=== PATIENT | female | born 1970 | race Caucasian/White ===

== ENCOUNTER 2016-09-28 14:50 | Emergency (ER) | payer OTHER ==
[~2016-09-28] VITALS: Ht 154.9 cm; Wt 60.0 kg
[~2016-09-28 14:50] MED LIST: DICY20TA10 PO; PRT40 PO; RANI150T3 PO; TRAZ50TA35 PO
[2016-09-28 14:55] VITALS: TEMP 37.1; Ht 154.9 cm; Wt 60.0 kg
[2016-09-28] MEDS ORDERED: ACETAMINOPHEN/HYDROCODONE ELIX 15 ML/CUP UDP PO STA (15:21)
--- NOTE | 2016-09-28 16:08 | DIAGNOSTIC IMAGING REPORT ---
LEFT FOOT MIN 3 VIEWS ROUTINE CLINICAL HISTORY: injury s/p fall COMPARISON: None. DISCUSSION: The bones and joint spaces appear intact. There is no evidence of fracture, dislocation or bony disease. There is no evidence for soft tissue swelling. IMPRESSION: Negative study. Electronically signed by: Mino Alvarez M.D. 09/28/2016 4:06 PM
--- NOTE | 2016-09-28 16:11 | DIAGNOSTIC IMAGING REPORT ---
LEFT ANKLE 3 VIEWS HISTORY: injury s/p fall COMPARISON: None. FINDINGS: There is no fracture or dislocation. Soft tissues are unremarkable. No radiopaque foreign bodies. IMPRESSION: No fractures. Electronically signed by: Aubrey Benton M.D. 09/28/2016 4:09 PM
[2016-09-28] MEDS ORDERED: HYDR1SOL10 PO (16:34)
--- NOTE | 2016-09-28 16:35 | EMERGENCY ROOM VISIT NOTE ---
ED Visit Note First contact with patient: 15:01 Chief Complaint: Foot/Ankle Injury History of Present Illness: This patient is a 46-year-old female who presents to the Emergency Department this afternoon for evaluation of their LEFT Foot/ Ankle Injury. Patient states that they injured the ankle while stepping awkwardly off of a curb. They report moderate pain over the lateral aspect of the ankle and foot after inverting the ankle. Pain is worse with ambulation. They deny any numbness or tingling into the distal extremity including the toes. They deny any pain extending into the affected leg. Patient reports no previous fractures of the affected ankle. Patient rates her current discomfort as a 10/10. Patient has tried nothing for their pain. She did not strike her head. She did not lose consciousness. Medications: Reviewed and discussed with the patient. Allergies: No known allergies. PMH: No pertinent past medical history. SHx: Patient is a 46-year-old female who lives locally. ROS: All pertinent positive and negative review of systems are appropriately documented in the History of Present Illness. Physical Exam: VITAL SIGNS - Vital signs and nursing notes were reviewed. GENERAL - 46-year-old female appearing her stated age and in noticeable discomfort throughout the exam. MUSCULOSKELETAL - LEFT ankle and proximal foot with moderate edema and developing ecchymosis. No erythema noted. Moderate tenderness to palpation appreciated over the affected area. No tenderness extending into the foot or up the leg. +2/5 strength appreciated LEFT versus right secondary to patient discomfort. Pt with decreased AROM at affected joint secondary to discomfort. NEUROLOGIC/VASCULAR - Neurovascularly intact distally with +3/5 dorsalis pedis pulses palpated bilaterally. Normal sensation to light and sharp touch appreciated distally. IMAGING: LEFT ANKLE 3 VIEWS HISTORY: injury s/p fall COMPARISON: None. FINDINGS: There is no fracture or dislocation. Soft tissues are unremarkable. No radiopaque foreign bodies. IMPRESSION: No fractures. LEFT FOOT MIN 3 VIEWS ROUTINE CLINICAL HISTORY: injury s/p fall COMPARISON: None. DISCUSSION: The bones and joint spaces appear intact. There is no evidence of fracture, dislocation or bony disease. There is no evidence for soft tissue swelling. IMPRESSION: Negative study. ED Course: Patient was seen and evaluated by myself. Patient was provided an ice pack for comfort. Patient was provided Lortab Elixer for their complaint of pain as she is unable to swallow pills. X-rays were obtained of the affected ankle and foot. Imaging results as above. Images were discussed and reviewed with the patient who acknowledges understanding. Patient was provided a Gel Ankle Splint and Crutches for their comfort. Patient was provided Lortab Elixer for pain control at home. Patient educated on worrisome symptoms for return visit to the emergency department. Patient with follow-up with their primary care provided in 4-5 days if their symptoms are not improving. Patient discharged to home in good condition. Impression: LEFT Ankle Sprain, LEFT Foot Sprain Discharge Instructions: You have been treated in the Emergency Department for your LEFT Ankle Sprain and LEFT Foot Sprain. You have received pain medicine in the emergency department which impairs your ability to operate a vehicle. It is illegal for you to drive after receiving these medicines. You have been prescribed Lortab Elixer to be used for pain control. This is a narcotic medication. You cannot drive or consume alcohol while on this medicine. This medicine should only be used for pain that cannot be controlled with agwa-ipn-vpfuvhh pain medicines. For pain control, you can use the following gsld-ark-nggwkyk medicines (if >12 yo): - Regular strength (325mg/tab) Tylenol (acetaminophen) 2 tabs every 4-6 hours as needed. Do not exceed 12 tablets in a 24 hour period. Avoid taking more than 4 grams (4000 mg) of Tylenol per day. This includes any other sources of acetaminophen you may take on a regular basis. - Regular strength (200 mg/tab) Advil (ibuprofen) 1-2 tabs every 4-6 hours as needed. Do not exceed a dose of 3200 mg per day. If this is a recent injury (<24 hrs), ice can be applied to the area of pain for the first 3 days to help decrease pain and inflammation. Please use the crutches and ankle splint until you are able to ambulate without discomfort. You can continue to use the ankle splint for the next 1-2 weeks to help with ankle stability. Follow-up with your primary care provider or Orthopedic Surgeon in 4-5 days if your symptoms are not improving despite the treatment plan outlined above. Return to the Emergency Department if your current symptoms worsen despite treatment course outlined above, or if you develop any of the following symptoms : intractable pain despite aforementioned treatment course or new onset of numbness or tingling of the foot. Problem List Medical Problems: (1) Depression Status: Chronic (2) GERD (gastroesophageal reflux disease) Status: Chronic (3) History of diverticulitis Permanent Comment: 2010 and 2012 Status: Chronic (4) History of endometriosis Permanent Comment: s/p hysterectomy 2009 Status: Chronic (5) Irritable bowel syndrome Status: Chronic (6) Osteoarthritis Status: Chronic Surgical Problems: (1) H/O: hysterectomy Permanent Comment: 2009 Status: Chronic (2) History of laparoscopy Permanent Comment: showed endometriosis Status: Chronic Current/Historical Medications Scheduled PRN Acetaminophen W/Codeine 120/12MG 5ML (Acetaminophen/Codeine 120-12 mg/5Ml), 10 ML PO Q4H PRN for Pain Dicyclomine Hcl (Dicyclomine Hcl), 20 MG PO QID PRN for Abdominal Pain Trazodone Hcl (Trazodone), 50-100 MG PO HS PRN for ALLERGIC REACTION Allergies Coded Allergies: No Known Allergies (Unverified , 09/28/16) Vital Signs Date Time Temp Pulse Resp B/P Pulse Ox O2 Delivery O2 Flow Rate FiO2 09/28/16 16:50 96 18 127/76 98 09/28/16 14:55 37.1 105 18 132/78 99 Room Air Medications Administered Medications (Trade) Dose Ordered Sig/Tasneem Route Start Time Stop Time Status Last Admin Dose Admin Acetaminophen/ Hydrocodone Bitart (Lortab Elixir) 10 ml NOW STAT PO 09/28/16 15:21 09/28/16 15:25 DC 09/28/16 15:37 10 ML Departure Information Impression Primary Impression: Ankle sprain Additional Impression: Foot sprain Dispostion Home / Self-Care Condition GOOD Prescriptions Acetaminophen W/Codeine 120/12MG 5ML (Acetaminophen/Codeine 120-12 mg/5Ml) 1 Ml Elix 10 ML PO Q4H Y for Pain, #180 ML Prov: Demarco Wynn, PAArmando 09/28/16 Referrals Kelsey Thompson MD (PCP) Patient Instructions A Signature Page, My [facility] Additional Instructions You have been treated in the Emergency Department for your LEFT Ankle Sprain and LEFT Foot Sprain. You have received pain medicine in the emergency department which impairs your ability to operate a vehicle. It is illegal for you to drive after receiving these medicines. You have been prescribed Lortab Elixer to be used for pain control. This is a narcotic medication. You cannot drive or consume alcohol while on this medicine. This medicine should only be used for pain that cannot be controlled with ryfc-moo-tvcdbab pain medicines. For pain control, you can use the following rzpq-whs-afuezha medicines (if >12 yo): - Regular strength (325mg/tab) Tylenol (acetaminophen) 2 tabs every 4-6 hours as needed. Do not exceed 12 tablets in a 24 hour period. Avoid taking more than 4 grams (4000 mg) of Tylenol per day. This includes any other sources of acetaminophen you may take on a regular basis. - Regular strength (200 mg/tab) Advil (ibuprofen) 1-2 tabs every 4-6 hours as needed. Do not exceed a dose of 3200 mg per day. If this is a recent injury (<24 hrs), ice can be applied to the area of pain for the first 3 days to help decrease pain and inflammation. Please use the crutches and ankle splint until you are able to ambulate without discomfort. You can continue to use the ankle splint for the next 1-2 weeks to help with ankle stability. Follow-up with your primary care provider or Orthopedic Surgeon in 4-5 days if your symptoms are not improving despite the treatment plan outlined above. Return to the Emergency Department if your current symptoms worsen despite treatment course outlined above, or if you develop any of the following symptoms : intractable pain despite aforementioned treatment course or new onset of numbness or tingling of the foot.
[2016-09-28 16:50] VITALS: BP 127/76; PULSE 96; O2SAT 98
[2016-09-28] MEDS ORDERED: [UNRECOGNIZED DRUG - CODE] PO (18:42)
== END 2016-09-28 16:52 | disposition home or self-care (01) ==
LOC: C.EDB 14:53 → C.EDD 16:52
DX: S93.402A Sprain of unspecified ligament of left ankle, initial encounter (principal); S93.602A Unspecified sprain of left foot, initial encounter; X50.1XXA Overexertion from prolonged static or awkward postures, initial encounter; K21.9 Gastro-esophageal reflux disease without esophagitis; K58.9 Irritable bowel syndrome, unspecified; M19.90 Unspecified osteoarthritis, unspecified site; N80.9 Endometriosis, unspecified; K57.92 Diverticulitis of intestine, part unspecified, without perforation or abscess without bleeding

== ENCOUNTER → 2016-10-12 | Outpatient (CLI) | payer OTHER ==
[~2016-10-12] MED LIST changes: -PRT40 PO; -RANI150T3 PO; +[UNRECOGNIZED DRUG - CODE] PO
--- NOTE | 2016-10-12 12:09 | DIAGNOSTIC IMAGING REPORT ---
CT LEFT CALCANEUS NO CONTRAST CT DOSE: 693.38 mGy.cm CLINICAL HISTORY: Calcaneal fracture TECHNIQUE: Helical images were acquired in the transverse plane. Multiplane are reformatted images were acquired. COMPARISON STUDY: Conventional radiographic study dated 10/06/2016 FINDINGS: There is a fragmented avulsion type fracture arising from the superolateral aspect of the anterior calcaneus. Fracture fragment measures approximately 24 mm x 5 mm x 3 mm, and is distracted x 6.5 mm. There is no intra-articular component. The subtalar joint appears intact. The talus navicular joint appears intact. The calcaneocuboid joint appears intact. IMPRESSION: Fragmented avulsion type fracture arising from the superior lateral aspect of the anterior calcaneus. The fragment measures approximately 24 mm x 5 mm x 3 mm and is distracted x 6.5 mm. Electronically signed by: Andrew Avendaño M.D. 10/12/2016 12:07 PM Dictated Date/Time: 10/12/2016 11:58 AM
== END | disposition home or self-care (01) ==
LOC: C.CTS 11:19
PROVIDERS: ATTEND Family Medicine
DX: S92.009A Unspecified fracture of unspecified calcaneus, initial encounter for closed fracture (principal); X58.XXXA Exposure to other specified factors, initial encounter

== ENCOUNTER → 2016-10-24 | Day surgery (SDC) | payer OTHER ==
[2016-10-20 13:25] VITALS: Ht 154.9 cm; Wt 61.4 kg
[~2016-10-24] VITALS: Ht 154.9 cm; Wt 61.4 kg
[~2016-10-24] MED LIST changes: +ATROPINE SULFATE 0.1 MG/ML 5ML SYR IV PRN; +BUPIVACAINE/EPINEPHRINE 0.5% MPF 1:200,000 30 ML VIAL ONE; +CEFAZOLIN 1000MG/55 ML D5W IV SCH; +DEXAMETHASONE SOD INJ 4 MG/ML VIAL ONE; +EpHEDrine SULFATE INJ 50 MG/ML AMP IV PRN; +FENTANYL CITRATE INJ 50 MCG/1 ML 2 ML VIAL IV PRN; +FENTANYL CITRATE INJ 50 MCG/1 ML 2 ML VIAL ONE; +GLYCOPYRROLATE INJ 0.2 MG/ML VIAL ONE; +LACTATED RINGER'S 1000ML 1,000 ML IV SCH; +LIDOCAINE HCL 1% 20 ML VIAL ONE; +LIDOCAINE HCL 2% 2 ML VIAL (20MG/ML) ONE; +MIDAZOLAM HCL 1 MG/ML 2ML VIAL ONE; +MoRPHine SULFATE 2 MG/ML CARP IV PRN; +MoRPHine SULFATE 4 MG/ML 1 ML CARP\\VIAL IV PRN; +NEOSTIGMINE METHYLSULFATE 5 MG/5 ML SYR ONE; +ONDANSETRON INJ 2 MG/ML 2 ML VIAL IV PRN; +ONDANSETRON INJ 2 MG/ML 2 ML VIAL ONE; +OXYCODONE/ACETAMINOPHEN 5-325 TAB PO PRN; +PROPOFOL IV EMULSION 10 MG/ML 20 ML VIAL IV ONE; +ROCURONIUM BROMIDE 10 MG/ML 5 ML VIAL ONE
--- NOTE | 2016-10-24 08:56 | History & Physical Bridge - SC ---
H&P Re-Evaluation Bridge Note: I have examined the patient, reviewed the History & Physical and in the interval since the performance of the History & Physical I have noted the following changes of clinical significance: No changes noted
--- NOTE | 2016-10-24 10:52 | [facility] Operative Report ---
Operative Report Operative Date Oct 24, 2016. Pre-Operative Diagnosis Left Calcaneus Fracture Post-Operative Diagnosis Same Procedure(s) Performed Left Calcaneus Fracture Open Reduction Internal Fixation Surgeon Dr. Fuentes Manager Completions Surgeon(s) Fortino Kim, Fellow; Manuel Mitchell PA-C Estimated Blood Loss 12 ML Findings Displaced fragment anterior lateral process left Calcaneus, adjacent to Calcaneocuboid joint. Small shell of bone. Fluids (cc crystalloids) 1300 Specimens None Drains n/a Anesthesia LMA Complication(s) None Disposition Recovery Room / PACU (Stable) Implants 1.4 mm JuggerKnot Anchors x 2 (Biomet) Indications The patient is a 46 year old female who injured their left calcaneus displaced a avulsion fracture from the anterior lateral process that occurred from a misstep over 3 weeks ago. The patient understands the risks of surgery, which include but are not limited to: bleeding, infection, re-operation, damage to nerves and arteries, continued pain, loss of reduction, hardware failure, the need for repeat surgery, decrease level of activity, and DVT. The patient understand all of these instructions and explanations, all of their questions have been satisfactorily addressed. The patient have elected to proceed with surgery and the informed consent was signed. Description of Procedure The patient was taken to the Operating Room and placed in the supine position on the operating table with a bump under the ipsilateral hip. After general anesthetic was administered a multidisciplinary time-out was performed identifying my initials on the left limb as the correct and operative limb. Prior to the incision being made, 1 gram of intravenous Ancef was given. The left leg was prepped and draped in the standard fashion. The distal fibula, the fifth metatarsal base was marked as well as the planned incision approximately 1 cm anterior to the distal fibula and carried toward 1 cm anterior to the base of the fifth metatarsal, approximately 4 cm in length. The planned incision laterally and a ring block of the superficial peroneal nerve and sural nerves were injected with a 50:50 mixture of 1% lidocaine and 0.5 % Marcaine with epi for a total of 18 cc. The planned incision was made and carried down through the skin. The fracture site was easily identified with some bleeding bone between the 2 fragments. The Avulsed fragment was retracted medially. The extensor digitorum brevis was gently lifted off the anterior lateral process of the calcaneus. A small portion of the EDB remained attached to the displaced fragment. Due to bleeding from the bone, the wound was covered Esmarch was used to exsanguinate the limb and the tourniquet was inflated to 250 mmHg. The inferior and lateral edge of the small fragment was debrided of soft tissue. The fracture site was debrided with copious irrigation , dental pick, and rongeur, removing any soft tissue and hematoma. A pointed reduction clamp was attempted to reduce the fragments with the foot he deferred it, while placing a K wire for a headless screw. At this point it was felt that the displaced fragment was too thin to accommodate a headless screw. At this point it was decided to use two 1.4 mm JuggerKnot anchors to reduce and then secure the fragments. The anchors were placed in good cortical bone of the main calcaneus. The sutures were then passed in a horizontal mattress fashion one centrally from each anchor and another either distal or proximal corresponding with the location of the anchor. The proximal sutures were tied first followed by the distal sutures. Further reduction was accomplished by passing one limb from each anchor through the periosteum of the calcaneus and tying together. The calcaneocuboid capsule and EDB were reattached again using the remaining suture from the distal anchor in a modified Gil manner. The sinus Tarsi was closed over the fragment with the remaining suture from the proximal anchor. Fluoroscopy was brought in showing the fragment to be well reduced. The wound had been copiously irrigated throughout the procedure. The tourniquet was deflated, there was only bleeding from fracture site. 3-0 Vicryl was used to close the subcutaneous layer. 4-0 nylon in horizontal mattress fashion was used to close the skin. Xeroform was placed overtop followed by 4 x 4's ABDs, sterile cast padding, an AO splint was placed maintaining the foot in eversion. The patient was awakened and taken to the recovery room in stable condition. Post-op Instructions: The patient will remain NWB. Pain medicine prescription was given pre- operatively to be taken as needed. The patient will follow up with me in 10-15 days. I attest to the content of the Intraoperative Record and any orders documented therein. Any exceptions are noted below.
--- NOTE | 2016-10-24 10:57 | Discharge Instructions-SurgCtr ---
Discharge Instructions Visit Reason for Visit: Left Calcaneus Fracture Discharge Discharge Diagnosis / Problem: Status post ORIF Left Calcaneous fracture Discharge Goals Goal(s): Decrease discomfort, Improve function, Increase independence Activity Recommendations Activity Limitations: per Instructions/Follow-up section Exercise/Sports Limitations: none May Resume Sexual Activity: when tolerated Shower/Bathe: may shower/bathe in 3 days Driving or Machine Use: No Weightbearing Status: Left non-weightbearing Anesthesia . Post Anesthesia Instructions: If you have had General Anesthesia or IV Sedation: * Do not drive today. * Resume driving when surgeon permits. * Do not make important decisions or sign legal documents today. * Call surgeon for: 1. Temperature elevations greater than 101 degrees F. 2. Uncontrollable pain. 3. Excessive bleeding. 4. Persistent nausea and vomiting. 5. Medication intolerance (nausea, vomiting or rash). * For nausea and vomiting use only clear liquids such as: tea, soda, bouillon until nausea subsides, then gradually increase diet as tolerated. * If you have any concerns or questions, call your surgeon's office. If physician is unavailable and it is an emergency, call 911 or go to the nearest emergency room. . Instructions / Follow-Up Instructions / Follow-Up Dr. Fuentes in 10-15 days. PT in 7-10 days. Diet Recommendations Home Diet: resume previous diet Procedures Procedures Performed: Left Calcaneus Fracture Open Reduction Internal Fixation Pending Studies Studies pending at discharge: no Medical Emergencies . Who to Call and When: Medical Emergencies: If at any time you feel your situation is an emergency, please call 911 immediately. . Non-Emergent Contact Non-Emergency issues call your: Surgeon Call Non-Emergent contact if: temperature is above 101.5, your pain is not controlled, wound has increased drainage, wound has increased redness . . "Provider Documentation" section prepared by Miguel Fuentes.
--- NOTE | 2016-10-24 11:05 | [facility] Operative Report ---
Operative Report Operative Date Oct 24, 2016. Pre-Operative Diagnosis Left Calcaneus Fracture Post-Operative Diagnosis Same Procedure(s) Performed Left Calcaneus Fracture Open Reduction Internal Fixation Surgeon Dr. Fuentes Violin Mechanic Surgeon(s) Fortino Kim, Fellow; Manuel Mitchell PA-C Estimated Blood Loss 12 ML Findings same Fluids (cc crystalloids) 1300 Specimens None Drains none Anesthesia general Complication(s) None Disposition Recovery Room / PACU Implants see Dr. Fuentes's note Indications sustained injury to left foot, xrays/CT obtained, surgery recommended, consents signed. Description of Procedure taken to the OR, prepped and draped, I was present the entire case, please see Dr. Fuentes's note for further detail I attest to the content of the Intraoperative Record and any orders documented therein. Any exceptions are noted below.
--- NOTE | 2016-10-24 11:56 | Anesthesia Progress Nt - [facility] ---
Anesthesia Post Op Note Date & Time Oct 24, 2016 at 11:56 Vital Signs Pain Intensity: 3 Vital Signs Past 12 Hours Date Time Temp Pulse Resp B/P Pulse Ox O2 Delivery O2 Flow Rate FiO2 10/24/16 11:03 36.8 99 12 138/87 96 Diffusion Mask 6 10/24/16 07:55 36.6 86 16 125/80 97 Room Air Notes Mental Status: alert / awake / arousable, participated in evaluation Pt Amnestic to Procedure: Yes Nausea / Vomiting: adequately controlled Pain: adequately controlled Airway Patency, RR, SpO2: stable & adequate BP & HR: stable & adequate Hydration State: stable & adequate Anesthetic Complications: no major complications apparent Pt doing well.
[2016-10-24 12:32] VITALS: TEMP 36.7
[2016-10-24 12:57] VITALS: BP 139/85; PULSE 100; O2SAT 96
== END | disposition home or self-care (01) ==
LOC: X.SURG 07:40
PROVIDERS: ATTEND Orthopaedic Surgery Sports Medicine
DX: S92.022A Displaced fracture of anterior process of left calcaneus, initial encounter for closed fracture (principal); X58.XXXA Exposure to other specified factors, initial encounter; Z90.710 Acquired absence of both cervix and uterus; Z68.25 Body mass index [BMI] 25.0-25.9, adult; Z87.891 Personal history of nicotine dependence

== ENCOUNTER → 2016-11-24 | Outpatient (CLI) | payer OTHER ==
[~2016-11-24] MED LIST changes: -ATROPINE SULFATE 0.1 MG/ML 5ML SYR IV PRN; -BUPIVACAINE/EPINEPHRINE 0.5% MPF 1:200,000 30 ML VIAL ONE; -CEFAZOLIN 1000MG/55 ML D5W IV SCH; -DEXAMETHASONE SOD INJ 4 MG/ML VIAL ONE; -EpHEDrine SULFATE INJ 50 MG/ML AMP IV PRN; -FENTANYL CITRATE INJ 50 MCG/1 ML 2 ML VIAL IV PRN; -FENTANYL CITRATE INJ 50 MCG/1 ML 2 ML VIAL ONE; -GLYCOPYRROLATE INJ 0.2 MG/ML VIAL ONE; -LACTATED RINGER'S 1000ML 1,000 ML IV SCH; -LIDOCAINE HCL 1% 20 ML VIAL ONE; -LIDOCAINE HCL 2% 2 ML VIAL (20MG/ML) ONE; -MIDAZOLAM HCL 1 MG/ML 2ML VIAL ONE; -MoRPHine SULFATE 2 MG/ML CARP IV PRN; -MoRPHine SULFATE 4 MG/ML 1 ML CARP\\VIAL IV PRN; -NEOSTIGMINE METHYLSULFATE 5 MG/5 ML SYR ONE; -ONDANSETRON INJ 2 MG/ML 2 ML VIAL IV PRN; -ONDANSETRON INJ 2 MG/ML 2 ML VIAL ONE; -OXYCODONE/ACETAMINOPHEN 5-325 TAB PO PRN; -PROPOFOL IV EMULSION 10 MG/ML 20 ML VIAL IV ONE; -ROCURONIUM BROMIDE 10 MG/ML 5 ML VIAL ONE
--- NOTE | 2016-11-24 12:22 | DIAGNOSTIC IMAGING REPORT ---
LEFT FOOT MIN 3 VIEWS CLINICAL HISTORY: Left foot pain. Calcaneal fracture. COMPARISON: CT of the left calcaneus October 12, 2016 and left foot radiograph September 28, 2016. FINDINGS: The tarsometatarsal joints are intact. The known left calcaneal fracture is not well depicted on this examination. There is mild sclerosis along anterior process of the calcaneus. No acute fractures are identified on this study. There is mild arthritis of the left first metatarsophalangeal joint. IMPRESSION: 1. Mild sclerosis along the anterior process of the calcaneus which could reflect a healing calcaneal fracture. This is better depicted on prior CT. 2. No acute fracture or dislocation of the left foot. Electronically signed by: Lowell Taylor M.D. 11/24/2016 12:21 PM Dictated Date/Time: 11/24/2016 12:17 PM
== END | disposition home or self-care (01) ==
LOC: C.RDSM 10:50
PROVIDERS: ATTEND Physical Medicine & Rehabilitation Sports Medicine
DX: M79.672 Pain in left foot (principal)

== ENCOUNTER → 2017-02-02 | Outpatient (CLI) | payer OTHER | END | disposition home or self-care (01) | LOC: C.RDSM 13:32 | PROVIDERS: ATTEND Orthopaedic Surgery Sports Medicine | DX: Z09 Encounter for follow-up examination after completed treatment for conditions other than malignant neoplasm (principal); M79.672 Pain in left foot ==

== ENCOUNTER 2017-12-25 19:17 | Emergency (ER) | payer OTHER ==
[~2017-12-25] VITALS: Ht 154.9 cm; Wt 65.3 kg
[~2017-12-25 19:17] MED LIST changes: -[UNRECOGNIZED DRUG - CODE] PO
[2017-12-25 19:30] VITALS: BP 136/95; PULSE 95; TEMP 36.8; O2SAT 97; Ht 154.9 cm; Wt 65.3 kg
[2017-12-25] MEDS ORDERED: ACETAMINOPHEN/HYDROCODONE ELIX 15 ML/CUP UDP PO STA (19:52)
[2017-12-25] MEDS ORDERED: LIDOCAINE/EPINEPHRINE 1% 20 ML VIAL INFIL ONE (20:00)
--- NOTE | 2017-12-25 20:27 | DIAGNOSTIC IMAGING REPORT ---
R HAND MIN 3 VIEWS ROUTINE CLINICAL HISTORY: Right hand injury with dog bite. COMPARISON: None FINDINGS: Overlying bandages are noted. No acute fracture or dislocation is present. There are no unexpected radiopaque foreign bodies. Carpal bones are intact. IMPRESSION: No acute fracture or dislocation of the right hand. Electronically signed by: Lowell Taylor M.D. 12/25/2017 8:26 PM Dictated Date/Time: 12/25/2017 8:24 PM
--- NOTE | 2017-12-25 20:41 | EMERGENCY ROOM VISIT NOTE ---
History First contact with patient: 19:42 Chief Complaint: BITE Stated Complaint: DOG BITE History of Present Illness The patient is a 47 year old female who presents to the Emergency Room with complaints of a dog bite to her right hand. The patient reports that her two dogs were fighting and she got in the middle of the fight. One of the dogs accidentally bit her right hand. She rates her current discomfort a 10/10. Pain is sharp and worse with movement of the hand. She is able to move all of her fingers without difficulty. She denies numbness or weakness. She states that her dog's vaccinations are all up-to-date. She states that her tetanus is up-to-date. She denies any other injuries. Review of Systems A complete 10 point review of systems was reviewed with the patient with pertinent positives and negatives as per history of present illness. All else were negative. Past Medical/Surgical History Medical Problems: (1) Depression (2) GERD (gastroesophageal reflux disease) (3) History of diverticulitis (4) History of endometriosis (5) Irritable bowel syndrome (6) Osteoarthritis Surgical Problems: (1) H/O: hysterectomy (2) History of laparoscopy Family History Cancer Diabetes mellitus FH: heart disease FHx: gallbladder disease FHx: lung disease Hypertension Kidney disease Kidney stones Social History Smoking Status: Never Smoker Alcohol Use: none Drug Use: none Marital Status: Housing Status: lives with family Occupation Status: unemployed Current/Historical Medications Scheduled Amoxicillin & Pot Clavulanate (Augmentin 875-125 mg), 1 TAB PO BID Scheduled PRN Dicyclomine Hcl (Dicyclomine Hcl), 20 MG PO QID PRN for Abdominal Pain Trazodone Hcl (Trazodone), 50-100 MG PO HS PRN for Sleep Physical Exam Vital Signs Date Time Temp Pulse Resp B/P (MAP) Pulse Ox O2 Delivery O2 Flow Rate FiO2 12/25/17 19:30 36.8 95 18 136/95 97 Room Air Physical Exam VITALS: Vitals are noted on the nurse's note and reviewed by myself. Vital signs stable. GENERAL: This is a 47-year-old female, in no acute distress, nondiaphoretic, well-developed well-nourished. SKIN: There is a 6 cm laceration to the palmar aspect of the right hand, proximal to the right thumb. There are no significant vessels, tendons or bones seen in the base of the wound. There is no active bleeding. There is a 1 cm puncture wound to the dorsal aspect of the hand as well as a few smaller puncture wounds to the hand. MUSCULOSKELETAL: Full range of motion of the right thumb and all other fingers of the right hand. NEURO: Patient was alert and oriented to person place and time. Normal sensation over the right hand and all fingers. Medical Decision & Procedures ER Provider Diagnostic Interpretation: R HAND MIN 3 VIEWS ROUTINE CLINICAL HISTORY: Right hand injury with dog bite. COMPARISON: None FINDINGS: Overlying bandages are noted. No acute fracture or dislocation is present. There are no unexpected radiopaque foreign bodies. Carpal bones are intact. IMPRESSION: No acute fracture or dislocation of the right hand. Medications Administered Medications (Trade) Dose Ordered Sig/Tasneem Route Start Time Stop Time Status Last Admin Dose Admin Acetaminophen/ Hydrocodone Bitart (Lortab Elixir) 15 ml NOW STAT PO 12/25/17 19:52 12/25/17 19:55 DC 12/25/17 20:12 15 ML Acetaminophen/ Hydrocodone Bitart (Hydrocod/Apap Elix 7.5/325MG/ 15ML Home Pack) 1 homepack UD ONCE PO 12/25/17 21:15 12/25/17 21:24 DC 12/25/17 21:43 1 HOMEPACK Amoxicillin/ Clavulanate Potassium (Augmentin 875MG Home Pack) 1 homepack UD ONCE PO 12/25/17 21:15 12/25/17 21:24 DC 12/25/17 21:42 1 HOMEPACK Procedure Verbal consent was obtained to perform the procedure. Using sterile technique the wound was cleaned with Betadine. The area was sterilely draped. 6 ml of 1 % buffered lidocaine with epinephrine was used to anesthetize the right hand laceration. Once the patient was anesthetized, the wound was copiously irrigated under pressure with sterile saline. The wound was explored and there were no deep structures injured such as tendons, bone, or significant blood vessels. The laceration was loosely repaired using 6 simple interrupted 4-0 nylon sutures with the wound edges being well approximated. The patient tolerated the procedure well. Hemostasis was achieved. The area was cleaned with sterile saline and dressed with bacitracin ointment and bandage. Medical Decision The patient was evaluated as above. She sustained a dog bite to the right hand. 1 of the bites was fairly deep and gaping and was repaired as noted above. The additional bites were small puncture wounds and do not require repair. Patient is up-to-date on tetanus and there is no risk for rabies. The patient will be placed on Augmentin. She states she is unable to swallow pills and I did verify with the pharmacist that she would be able to crush this medication. She was given Lortab elixir for pain. She was instructed to return here immediately if there are any signs of infection. She verbalized understanding of my assessment and treatment plan and was discharged home in good condition. Medication Reconcilliation Current Medication List: was personally reviewed by nd Blood Pressure Screening Patient's blood pressure: Normal blood pressure Impression Primary Impression: Dog bite Departure Information Dispostion Home / Self-Care Condition GOOD Prescriptions Amoxicillin & Pot Clavulanate (Augmentin 875-125 mg) 1 Tab Tab 1 TAB PO BID for 9 Days, #18 TAB Prov: Yecenia Daniel PA-C 12/25/17 Referrals Kelsey Thompson MD (PCP) Patient Instructions My [facility] Additional Instructions You have received 6 sutures on your hand. These sutures are NOT dissolvable and WILL need to be removed by a health care provider in 12-14 days. You can return to the Emergency Department or contact your Primary Care Provider to have the sutures removed. You were prescribed Augmentin to be taken twice daily as prescribed. This is an antibiotic. All antibiotics have the potential to cause diarrhea. Stop this medication and contact a medical provider if you were to develop any significant adverse side effects including: wheezing, shortness of breath, passing out, vomiting, or a diffuse rash. Always take antibiotics as directed and COMPLETE the ENTIRE course regardless of the improvement of your symptoms. Proper wound care is essential for adequate wound healing and infection prevention. You can shower and clean the wound with soap and water. Do not scour over the wound, pat dry with a towel. Do not submerse the wound (i.e. bathe or dish wash) until the sutures have been removed. You can use an antibiotic ointment with a dressing over the wound for the next 3-4 days. After this time you may leave the wound dry and open to the air. If crust develops over the wound you can use a Q-tip to apply a 1:1 peroxide:water solution to clean the wound. Look for signs of infection of the wound including: increased pain, swelling, foul discharge, streaking, or increased temperature. If any of these are noticed you should return to the Emergency Department for further assessment and treatment. As with any laceration you may have received nerve damage to the surrounding tissues. This damage may or may not be permanent. You should keep the area covered with sunscreen for the first 6 months to 1 year when at risk for exposure to help minimize scarring. You can also use scar reducing creams or Vitamin E oil to help minimize scarring. For pain control, you can use the following [id number] medicines (if >12 yo): - Regular strength (325mg/tab) Tylenol (acetaminophen) 2 tabs every 4-6 hours as needed. Do not exceed 12 tablets in a 24 hour period. Avoid taking more than 4 grams (4000 mg) of Tylenol per day. This includes any other sources of acetaminophen you may take on a regular basis. - Regular strength (200 mg/tab) Advil (ibuprofen) 1-2 tabs every 4-6 hours as needed. Do not exceed a dose of 3200 mg per day. Return to the emergency department immediately with any redness or swelling around the area, foul-smelling drainage from the wound, fevers, difficulty moving the hand or other new/concerning symptoms. Problem Qualifiers Primary Impression: Dog bite Encounter type: initial encounter Qualified Codes: W54.0XXA - Bitten by dog , initial encounter
[2017-12-25] MEDS ORDERED: AMOXICIL/CLAVU 875MG HOME PACK PO ONE (21:15)
[2017-12-25] MEDS ORDERED: HYDROCODONE/APAP ELIX 60ML HOME PACK PO ONE (21:15)
[2017-12-25] MEDS ORDERED: AMOX875T PO (21:31)
== END 2017-12-25 21:46 | disposition home or self-care (01) ==
LOC: C.EDB 19:18 → C.EDD 21:46
DX: S61.451A Open bite of right hand, initial encounter (principal); S61.411A Laceration without foreign body of right hand, initial encounter; W54.0XXA Bitten by dog, initial encounter; Z83.3 Family history of diabetes mellitus; Z82.49 Family history of ischemic heart disease and other diseases of the circulatory system; Z83.6 Family history of other diseases of the respiratory system; Z84.1 Family history of disorders of kidney and ureter

== ENCOUNTER → 2018-01-09 | Outpatient (CLI) | payer OTHER | END | disposition home or self-care (01) | LOC: C.LABPBG 09:21 | PROVIDERS: ATTEND Family Medicine | DX: Z00.00 Encounter for general adult medical examination without abnormal findings (principal) ==